=== PATIENT | female | born 1985 | race Caucasian/White ===

== ENCOUNTER → 2020-01-24 | Outpatient (CLI) | payer OTHER ==
--- NOTE | 2020-01-24 15:06 | RAD ---
Examination: PELVIS COMPLETE History: Reason: POST OVULATION PAIN / Comparison/Correlation: None Findings: Transabdominal pelvic ultrasound examination was performed. Uterus measures 9.5 cm x 5.7 cm x 3.3 cm. Endometrial thickness is 0.5 cm. Myometrium is normal. Right ovary measures 4 cm x 3.3 cm x 2.3 cm. Normal ovarian flow is evident on color Doppler imaging. Left ovarian follicle measuring up to 1.8 cm diameter is present. Small right adnexal follicles are present. No adnexal masses. No pelvic free fluid. Impression: Left adnexal follicle is present and is physiologic in appearance. No suspicious adnexal cysts or suspicious adnexal masses identified. Electronically signed by: Gurpreet Donohue MD (01/24/2020 3:02 PM) [facility]
== END ==
LOC: US 12:40
PROVIDERS: ATTEND Obstetrics & Gynecology
DX: N94.0 Mittelschmerz (principal)
CPT/HCPCS: 76856